=== PATIENT | female | born 1970 | race Two or more races ===

== ENCOUNTER 2019-10-03 22:50 | Inpatient (IN) | payer BC ==
[~2019-10-03] VITALS: Ht 152.4 cm; Wt 51.7 kg
[2019-10-04 01:10] VITALS: BP 162/88
--- NOTE | 2019-10-04 01:31 | NUR ---
RN NOTES 0108 RECEIVED VIA GURNEY FROM [facility]. ALERT AND VERBALLY RESPONSIVE, AMBULATORY. ASSISTED TO BED. ORIENTED TO PHYSICAL SET UP. CALL LIGHT WITHIN REACH. DENIES PAIN AT THIS TIME. KEPT COMFORTABLE. SB ON MONITOR AT THIS TIME WITH HR 55. 0130 SPOKE TO CONOR LAMAS HVAC TECH MADE AWARE OF PATIENT'S ARRIVAL. WILL DO ADMISSION ORDERS.
--- NOTE | 2019-10-04 01:45 | NUR ---
ADMISSION ASSESSMENT PERFORMED STILL AWAITING ADMISSION ORDERS PATIENT DENIES CP STILL HAS SBRADY AT 55 ON MONITOR. WILL CONT TO MONITOR.
[2019-10-04] MEDS ORDERED: MAGNESIUM HYDROXIDE 30 ML UDC PO PRN (02:30)
[2019-10-04] MEDS ORDERED: MAG HYDROX/AL HYDROX/SIMETH 30 ML UDC PO PRN (02:30)
[2019-10-04] MEDS ORDERED: ONDANSETRON HCL/PF 4 MG/2 ML VIAL IVP PRN (02:30)
[2019-10-04] MEDS ORDERED: HYDROCODONE/APAP 5/325MG 1 EACH TABLET PO PRN (02:30)
[2019-10-04] MEDS ORDERED: Z GUARD REMEDY 2 OZ OINT TP PRN (02:30)
[2019-10-04] MEDS ORDERED: ACETAMINOPHEN 325 MG TABLET PO PRN (02:30)
[2019-10-04 02:51] LABS: BASOPHILS % (AUTO) 0.6 % (0.0-2.0); EOSINOPHILS % (AUTO) 1.6 % (0.0-6.0); HEMATOCRIT 38 % (33-45); HEMOGLOBIN 12.7 g/dL (11.5-14.8); LYMPHOCYTES # (AUTO) 1.9 /CMM (0.8-4.8); LYMPHOCYTES % (AUTO) 34.6 % (20.0-44.0); MEAN CORPUSCULAR HGB CONC 34 g/dl (31.0-36.0); MEAN CORPUSCULAR VOLUME 96 fL (82-100); MONOCYTES # (AUTO) 0.5 /CMM (0.1-1.30); MONOCYTES % (AUTO) 9.5 % (2.0-12.0); NEUTROPHILS # (AUTO) 2.9 /CMM (1.8-8.9); NEUTROPHILS % (AUTO) 53.7 % (43.0-81.0); PLATELET COUNT (AUTO) 212 /CMM (150-450); RED BLOOD CELL COUNT(AUTO) 3.94 MIL/uL (4.0-5.2); WHITE BLOOD COUNT (AUTO) 5.5 K/uL (4.3-11.0)
[2019-10-04 03:08] LABS: CALCIUM, SERUM 8.4 mg/dL (8.5-10.1); CREATININE 0.7 mg/dL (0.6-1.3); POTASSIUM 3.8 mmol/L (3.5-5.1)
[2019-10-04 03:10] LABS: THYROID STIMULATING HORMONE 2.748 uIU/mL (0.358-3.74)
[2019-10-04 03:14] LABS: ALBUMIN 3.3 g/dL (3.4-5.0); BILIRUBIN,TOTAL 0.4 mg/dL (0.2-1.0); TOTAL PROTEIN, SERUM 6.5 g/dL (6.4-8.2)
--- NOTE | 2019-10-04 03:25 | NUR ---
SPOKE WITH NANCY LAMAS INFORMED OF TROP OF 1.378 NO NEW ORDERS RECIEVED.
[2019-10-04 04:00] VITALS: BP 120/51
--- NOTE | 2019-10-04 06:30 | NUR ---
RN CLOSING NOTE. PATIENT PRODUCED URINE SAMPLE PLACED IN LAB FRIDGE FOR PICUP. PT DENIES CP AND SOB. PATIENT ON RA BREATHING EVEN AND UNLABORED. PATIENT BED DOWN AND LOCKED. VERBALIZED UNDERSTANDING TO CALL FOR ASSISTANCE IF NEEDED.
[2019-10-04 08:00] VITALS: BP 102/54
[2019-10-04] MEDS: ASPIRIN 81 MG TAB.CHEW PO SCH (09:31)
[2019-10-04 09:34] LABS: APPEARANCE,URINE SL CLOUDY (CLEAR); BILIRUBIN,URINE NEGATIVE (NEGATIVE); BLOOD, URINE NEGATIVE Ery/uL (NEGATIVE); COLOR,URINE YELLOW (YELLOW); KETONES,URINE NEGATIVE (NEGATIVE); LEUKOCYTE ESTERASE ,URINE NEGATIVE (NEGATIVE); NITRITE, URINE NEGATIVE (NEGATIVE); PROTEIN,URINE NEGATIVE (NEGATIVE); UGLUCOSE NEGATIVE (NEGATIVE); UROBILINOGEN,URINE 0.2 EU/dL (0.2)
[2019-10-04] MEDS: ENOXAPARIN SODIUM 60 MG/0.6 ML DISP.SYRIN SQ SCH ×2 (10:09→20:52)
--- NOTE | 2019-10-04 11:41 | NUR ---
TELE/RN NOTES IV ACCESS WAS PLACED ON THE RAC FOR THE CT ANGIO OF THE HEART WITH 3D IMAGES. PATIENT ABLE TO TOLERATE IT WELL. CONTINUE TO REMAIN IN STABLE CONDITION.
[2019-10-04 12:00] VITALS: BP 109/68
[2019-10-04] MEDS ORDERED: METOPROLOL TARTRATE INJ 5 MG/5 ML AMPUL IVP ONE (13:00)
[2019-10-04] MEDS ORDERED: NITROGLYCERIN 0.4 MG/TAB BOTTLE SL ONE (13:00)
[2019-10-04] MEDS ORDERED: IV NS 0.9% 500 ML IV ONE (13:00)
--- NOTE | 2019-10-04 13:01 | NUR ---
TELE/RN NOTES MEDICATION NITROSTAT, LOPRESSOR AND NS WAS GIVEN PRIOR TO THE SCAN. PATIENT WAS ABLE TO TOLERATE PROCEDURE WELL. WILL CONTINUE TO MONITOR CLOSELY.
[2019-10-04 16:00] VITALS: BP 111/57
--- NOTE | 2019-10-04 18:36 | NUR ---
TELE/RN CLOSING NOTES PATIENT CONTINUES TO REMAIN IN STABLE CONDITION THROUGHOUT THE SHIFT. PROVIDED COMFORT AND SAFETY. PATIENT ABLE TO TOLERATE MEALS AND MEDS WELL. NO PAIN OR ACUTE DISTRESS AT THIS TIME. IV ACCESS INTACT AND PATENT. FLUSHING WELL. NO S/S OF INFECTION OR INFILTRATION. ALL NEEDS ANTICIPATED. CALL LIGHT WITHIN REACHED. BED LOCKED AND IN LOWEST POSITION. SAFETY MAINTAINED. WILL CONTINUE TO MONITOR CLOSELY. ENDORSED TO PM NURSE FOR TOBY.
--- NOTE | 2019-10-04 19:00 | NUR ---
diagnostic cardiac sonographer opening notes Received Pt from morning nurse. Pt is resting in bed comfrotably with family at the bed side. Pt is alert and oriented X4. Respiration is normal. No SOB. No S/S of distress noted. IV sites at LAC# 22 is clean, intact, patent and SL. IV sites ta RAC# 18 is clean, intact, patent and SL. Tele monitor showed sinus sanford HR at 56. Safety precautions is maintained. Bed at low position, brakes locked, side rails upX3 and call light is within reach. Will continue to monitor.
[2019-10-04 20:00] VITALS: BP 123/69
[2019-10-05] VITALS (7 sets, daily range): BP systolic 103–126; BP diastolic 55–67
[2019-10-05 06:33] LABS: BASOPHILS % (AUTO) 0.5 % (0.0-2.0); EOSINOPHILS % (AUTO) 1.9 % (0.0-6.0); HEMATOCRIT 38 % (33-45); HEMOGLOBIN 12.8 g/dL (11.5-14.8); LYMPHOCYTES # (AUTO) 1.7 /CMM (0.8-4.8); MEAN CORPUSCULAR HGB CONC 34 g/dl (31.0-36.0); MEAN CORPUSCULAR VOLUME 96 fL (82-100); MONOCYTES # (AUTO) 0.5 /CMM (0.1-1.30); MONOCYTES % (AUTO) 9.2 % (2.0-12.0); NEUTROPHILS # (AUTO) 2.7 /CMM (1.8-8.9); NEUTROPHILS % (AUTO) 54.4 % (43.0-81.0); PLATELET COUNT (AUTO) 208 /CMM (150-450); RED BLOOD CELL COUNT(AUTO) 3.96 MIL/uL (4.0-5.2)
[2019-10-05 06:43] LABS: CALCIUM, SERUM 8.3 mg/dL (8.5-10.1); CREATININE 0.7 mg/dL (0.6-1.3); MAGNESIUM 2.1 mg/dL (1.8-2.4); PHOSPHORUS 3.8 mg/dL (2.5-4.9)
--- NOTE | 2019-10-05 06:43 | NUR ---
dining room busser closing notes Pt is resting in bed comfortably. Pt is alert and orientedX4. respiration is normal. No SOB. No S/S of distress noted. Peripheral IV sites are intact and patent. Routine meds was given as ordered. VS is stable. Tele monitor showed sinus sanford HR 52. Kept Pt clean, dry, warm and comfortable. All needs met and attended. Safety precautions is maintained. Bed at low position, brakes locked, side rails upX3 and call light is within reach. Will endorse to morning nurse for TOBY.
--- NOTE | 2019-10-05 07:20 | NUR ---
STATE HISTORICAL SOCIETY DIRECTOR OPENING NOTES RECEIVED PATIENT AWAKE IN BED IN NO ACUTE SIGNS OF DISTRESS. A/O X4. ABLE TO MAKE NEEDS KNOWN, DENIES PAIN OR ANY DISCOMFORTS AT THIS TIME. ON ROOM AIR, BREATHING EVEN AND UNLABORED. TELEMONITORING SHOWS SB WITH HR OF 52 AT THIS TIME, NO C/O OF CARDIAC DISTRESS VOICED. PIV'S SL INTACT AND PATENT. BED IN LOW LOCKED SETTING WITH SR UP X2. CALL LIGHT WITHIN REACH. WILL CONTINUE TO MONITOR
[2019-10-05] MEDS: ASPIRIN 81 MG TAB.CHEW PO SCH (08:09)
[2019-10-05] MEDS: ENOXAPARIN SODIUM 60 MG/0.6 ML DISP.SYRIN SQ SCH (08:10)
[2019-10-05] MEDS ORDERED: ENOX60DI SQ (12:53)
--- NOTE | 2019-10-05 18:38 | NUR ---
RN DISCHARGED NOTES PT DISCHARGED HOME IN STABLE MEDICAL CONDITION. A/O X4, SAME VERBALLY RESPONSIVE AND AMBULATORY. V/S TAKEN AND RECORDED. ALL BELONGINGS ACCOUNTED FOR. PIV'S SL REMOVED, MINIMAL BLEEDING NOTED, PRESSURE DRY DRESSING APPLIED. NAME ARM BAND REMOVED. HEALTH TEACHING/DISCHARGE INSTRUCTIONS GIVEN TO PT AND VERBALIZED UNDERSTANDING. PT LEFT UNIT VIA WHEELCHAIR @ 1805 ACCOMPANIED LATIN DANCE INSTRUCTOR AND PT'S . CHARGE NURSE AWARE OF DISCHARGE.
== END 2019-10-05 18:38 | disposition home or self-care (01) | DRG 282 ==
LOC: TELE1 10-04 00:58
PROVIDERS: ADMIT Registered Nurse; ATTEND Registered Nurse
DX: I47.1 Supraventricular tachycardia (principal); I21.A1 Myocardial infarction type 2; E78.5 Hyperlipidemia, unspecified; Z80.0 Family history of malignant neoplasm of digestive organs; Z83.79 Family history of other diseases of the digestive system
CPT/HCPCS: 36415; 71046; 75574; 80048-TC; 80053-TC; 80061-TC; 80305; 81000-TC; 83735-TC; 84100-TC; 84443-TC; 84484-TC; 85025-TC; 87081-TC; 87086-TC; 93307-TC; G0378; J1650; J7040